=== PATIENT | female | born 1950 | race African-American/Black ===

== ENCOUNTER 2016-11-13 12:00 | Inpatient (IN) | payer MEDICARE, OTHER ==
[~2016-11-13] VITALS: Ht 162.6 cm; Wt 86.2 kg
[2016-11-13] MEDS ORDERED: IV NORMAL SALINE 1000 ML BAG IV ONE (12:15)
[2016-11-13] MEDS ORDERED: ONDANSETRON IV *ER 4 MG/2 ML VIAL IV ONE (12:30)
[2016-11-13] MEDS ORDERED: ALBU8HFA4 IH (12:41)
[2016-11-13] MEDS ORDERED: CALC-1190 PO (12:41)
[2016-11-13] MEDS ORDERED: AMLO5TAB2 PO (12:41)
[2016-11-13] MEDS ORDERED: LORA2TAB PO (12:41)
[2016-11-13] MEDS ORDERED: DEXT1DRO3 OP (12:41)
[2016-11-13] MEDS ORDERED: RISP2TAB23 PO (12:41)
[2016-11-13] MEDS ORDERED: SENN1TAB83 PO (12:41)
[2016-11-13] MEDS ORDERED: SERT25TA5 PO (12:41)
[2016-11-13] MEDS ORDERED: LEVO100T10 PO (12:41)
[2016-11-13] MEDS ORDERED: ACET-2067 PO (12:41)
[2016-11-13] MEDS ORDERED: TEMA15CA PO (12:41)
[2016-11-13] MEDS ORDERED: ATOR40TA PO (12:41)
[2016-11-13] MEDS ORDERED: METO25TA6 PO (12:41)
[2016-11-13] MEDS ORDERED: NAPR500T3 PO (12:41)
[2016-11-13] MEDS ORDERED: BENZ0.5T3 PO (12:41)
[2016-11-13] MEDS ORDERED: HYDR25TA4 PO (12:41)
[2016-11-13] MEDS ORDERED: ONDANSETRON 4 MG/2 ML VIAL ONE (12:42)
[2016-11-13 13:09] LABS: BASOPHILS % (AUTO) 0.1 % (0.0-2.0); EOSINOPHILS # (AUTO) 0.1 K/uL (0.0-0.7); EOSINOPHILS % (AUTO) 0.9 % (0.0-7.0); HEMATOCRIT 46.2 % (31.2-41.9); HEMOGLOBIN 15.5 g/dL (10.9-14.3); LYMPHOCYTES # (AUTO) 2.8 K/uL (20.0-40.0); LYMPHOCYTES % (AUTO) 21.1 % (20.5-51.5); MEAN CORPUSCULAR HEMOGLOBIN 28.4 uug (24.7-32.8); MEAN CORPUSCULAR HGB CONC 34 g/dL (32.3-35.6); MEAN CORPUSCULAR VOLUME 84.7 fL (75.5-95.3); MONOCYTES # (AUTO) 1.2 K/uL (2.0-10.0); MONOCYTES % (AUTO) 9.1 % (0.0-11.0); NEUTROPHILS # (AUTO) 9.3 K/uL (1.8-8.9); NEUTROPHILS % (AUTO) 68.8 % (38.5-71.5); PLATELET COUNT (AUTO) 267 K/uL (179-408); RED BLOOD CELL COUNT(AUTO) 5.45 MIL/uL (3.63-4.92); RED CELL DISTRIBUTION WIDTH 15.6 % (12.3-17.7); WHITE BLOOD COUNT (AUTO) 13.4 K/uL (3.8-11.8)
[2016-11-13 13:16] LABS: ALBUMIN 4.2 g/dL (3.4-5.0); BILIRUBIN,DIRECT 0.1 mg/dL (0.0-0.2); BILIRUBIN,TOTAL 0.8 mg/dL (0.2-1.0); CALCIUM 11.2 mg/dL (8.5-10.1); CREATININE 1.3 mg/dL (0.6-1.3); POTASSIUM 3.2 mmol/L (3.5-5.1); TOTAL PROTEIN, SERUM 9.4 g/dL (6.4-8.2)
[2016-11-13 13:18] LABS: TROPONIN I < 0.017 ng/mL (0.00-0.056)
--- NOTE | 2016-11-13 13:23 | NUR ---
PT AT BEDSIDE ASLEEP. BUT AROUSABLE. PLACED PT ON O2 1L, BECAUSE PT DESATS TO 82% ON RA WHEN SLEEPING. WCTM PT AT THIS TIME. WAITING FOR FURTHER PLAN OF CARE
[2016-11-13 13:31] LABS: LACTIC ACID 2.6 mmol/L (0.4-2.0)
[2016-11-13 13:36] LABS: BAND % (MANUAL) 9 % (0-10); EOSINOPHILS % (MANUAL) 1 % (0-8); LYMPHOCYTES % (MANUAL) 20 % (20-40); METAMYELOCYTES % 1 % (0-1); MONOCYTES % (MANUAL) 9 % (2-10); NEUTROPHILS % (MANUAL) 60 % (42-75)
[2016-11-13 13:38] LABS: ANISOCYTOSIS 1+; STOMATOCYTES 1+; TEAR DROP CELLS 1+
[2016-11-13] MEDS ORDERED: IOHEXOL 300MG/ML 100 ML INFUS..BTL ONE (13:44)
[2016-11-13] MEDS ORDERED: IV NORMAL SALINE 250 ML IV ONE (13:44)
--- NOTE | 2016-11-13 13:49 | NUR ---
PT IS IN CT
[2016-11-13] MEDS ORDERED: IV NORMAL SALINE 500 ML BAG IV ONE (15:00)
[2016-11-13] MEDS ORDERED: PIPERACILLIN SODIUM/TAZOBACTAM 3.375 G in IV DEXTROSE 5% 50 ML IV ONE (15:15)
--- NOTE | 2016-11-13 15:28 | NUR ---
ATTEMPTED TO PLACE NG TUBE PER MD'S ORDER. HOWEVER, PT REFUSED EXPLAINED RISKS AND BENEFITS OF NG TUBE. PT STILL REFUSED. MD HOLDEN IS AWARE
[2016-11-13] MEDS ORDERED: PIPERACILLIN/TAZOBACTAM/D5W 50 ML IV ONE (15:34)
[2016-11-13] MEDS ORDERED: HYDROCODONE/APAP 5-325MG TABLET PO PRN (15:45)
[2016-11-13] MEDS ORDERED: MAGNESIUM HYDROXIDE 30 ML LIQUID UDC PO PRN (15:45)
[2016-11-13] MEDS ORDERED: ONDANSETRON 4 MG/2 ML VIAL IV PRN (15:45)
[2016-11-13] MEDS ORDERED: MORPHINE SULFATE 2 MG/1 ML DISP.SYRIN IV PRN (15:45)
[2016-11-13] MEDS ORDERED: Z GUARD REMEDY PASTE 57 GM TUBE TOP PRN (15:45)
[2016-11-13] MEDS ORDERED: ACETAMINOPHEN 325 MG TABLET PO PRN (15:45)
[2016-11-13] MEDS ORDERED: TEMAZEPAM 7.5 MG CAPSULE PO PRN (15:45)
--- NOTE | 2016-11-13 16:00 | NUR ---
PER MD HOLDEN. NG-TUBE IS "OKAY TO USE"
--- NOTE | 2016-11-13 16:00 | NUR ---
REPORT GIVEN TO HOMER, AWARE OF PT'S CURRENT CONDITION. WILL CONTINUE PLAN OF CARE
[2016-11-13 17:00] VITALS: BP 133/81
[2016-11-13] MEDS: IV NS 1000 ML 1,000 ML IV PRN (18:00)
--- NOTE | 2016-11-13 18:00 | NUR ---
NGT intact marked of placement of NGT and TAPE connection. NGT to low intermittent suction - got 200cc out - green bile. Pt is in no acute distress. Pt alert and oriented x 4 tele @ low 100's sinus tach. Call light is within reach. DR caden HERNANDEZ called and stated that he will see pt tomorrow spoke with discharge planner. Call light is within reach. Pt is in no acute distress.
[2016-11-13 20:00] VITALS: BP 136/90
--- NOTE | 2016-11-13 20:00 | NUR ---
RECEIVED PT'S ON BED REST COMFORTABLY,NGT @ RIGHT NOSTRIL TO LOW INTERMITTENT SUCTION,TEST FOR PLACEMENT AT THIS TIME;KEPT NPO ORDER;EDUCATED TO PT,ORAL CARE;PT VERBALIZED UNDERSTANDING AND COOPERATIVE.SCD TO BLE.MAINTAINED IVF MD'S ORDER,PT'S ABLE TO TURN ON BED;ASSISTED FOR PM CARE AT THIS TIME.KEPT COMFORT.TELEMETRY'S SINUS TACHYCARDIA 106/MIN.
--- NOTE | 2016-11-13 22:00 | NUR ---
DECREASED O2 NC TO 2 LPM;O2 SAT'S 97-98%;NO SOB NOTED.ASSISTED FOR ORAL CARE;REPOSITION.KEPT COMFORT.BED ALARM'S OB.CONTINUED MONITORING TO PT.PT DENIED OF PAIN OR ANY DISCOMFORT.
[2016-11-14] VITALS: BP 125/84
--- NOTE | 2016-11-14 01:15 | NUR ---
Spoke to Marques Barahona/PAUL who's automation qa analyst tonight(for );notified about NGT output's 700 ml(since admission until now) and K level's 3.2;got order to give Potassium 20 mEq IVPB x1 dose.Pt's comfortable on bed;denied of pain or any discomfort.continued monitoring to pt.Telemetry's ST 102/min.Continued monitoring to pt.
[2016-11-14] MEDS: POTASSIUM CHLORIDE 50 ML IV SCH ×6 (01:17→17:41)
[2016-11-14] MEDS: IV NS 1000 ML 1,000 ML IV PRN ×2 (02:05→14:35)
[2016-11-14 04:00] VITALS: BP 119/73
--- NOTE | 2016-11-14 06:30 | NUR ---
Assisted pt for am care on bed,skin's intact/pt's cooperative w/assistance;kept NPO as order.NGT to LIS got total of gastric content 1000 ml;greenish color noted.pt denied of pain and no N/V was seen in the shift.no distress noted.Telemetry's still ST 104/min.continued monitoring to pt.
[2016-11-14 06:39] LABS: BASOPHILS % (AUTO) 0.1 % (0.0-2.0); EOSINOPHILS # (AUTO) 0.1 K/uL (0.0-0.7); EOSINOPHILS % (AUTO) 1.5 % (0.0-7.0); HEMATOCRIT 41.5 % (31.2-41.9); HEMOGLOBIN 13.6 g/dL (10.9-14.3); LYMPHOCYTES # (AUTO) 2.9 K/uL (20.0-40.0); LYMPHOCYTES % (AUTO) 30.2 % (20.5-51.5); MEAN CORPUSCULAR HEMOGLOBIN 28.4 uug (24.7-32.8); MEAN CORPUSCULAR HGB CONC 33 g/dL (32.3-35.6); MEAN CORPUSCULAR VOLUME 86.4 fL (75.5-95.3); MONOCYTES % (AUTO) 10.8 % (0.0-11.0); NEUTROPHILS # (AUTO) 5.7 K/uL (1.8-8.9); NEUTROPHILS % (AUTO) 57.4 % (38.5-71.5); PLATELET COUNT (AUTO) 238 K/uL (179-408); RED CELL DISTRIBUTION WIDTH 15.6 % (12.3-17.7); WHITE BLOOD COUNT (AUTO) 9.7 K/uL (3.8-11.8)
[2016-11-14 06:49] LABS: ALBUMIN 3.3 g/dL (3.4-5.0); BILIRUBIN,TOTAL 0.6 mg/dL (0.2-1.0); MAGNESIUM 2.1 mg/dL (1.8-2.4); PHOSPHOROUS 3.3 mg/dL (2.5-4.9); POTASSIUM 3.1 mmol/L (3.5-5.1); TOTAL PROTEIN, SERUM 7.6 g/dL (6.4-8.2)
[2016-11-14 06:59] LABS: CALCIUM 9.6 mg/dL (8.5-10.1)
[2016-11-14] MEDS ORDERED: DIATR MEGLU/DIATRIZOATE SODIUM 120 ML BOTTLE ONE (08:33)
[2016-11-14] MEDS ORDERED: DIATR MEGLU/DIATRIZOATE SODIUM 30 ML SOLUTION ONE (08:33)
[2016-11-14] MEDS: PANTOPRAZOLE SODIUM 40 MG VIAL IV SCH (08:58)
[2016-11-14] MEDS ORDERED: ACETAMINOPHEN 650 MG SUPP.RECT RC PRN (09:15)
[2016-11-14 11:30] VITALS: BP 131/82
[2016-11-14 15:40] VITALS: BP 186/101
--- NOTE | 2016-11-14 17:28 | NUR ---
Patient have been sleeping intermittently. No s/s of acute distress noted. During x-ray and positioning patient vomit 3 times during my shift, and became tachy >120 <150, Luz Elena Calderón was notified for the sudden and sustain increase HR. NG tube was pulled out by patient, new one was inserted in the mouth by TOM Bernstein., after 3 attempts made by Danni, and myself. Patient became very agitated and combative during placement of the tube. Dr. Childs stated no need for restrain. I explained patient the importance of maintaining the g-tube in place, and risk for aspiration. Verbalized understanding. Vomit 670cc and suction 1,100 cc after the placement of tube. Refused straight cath for urine sample, she said she will let me know when she has to urinate, but she have not. She have been urinating in the diaper. Patient is resting now, safety and comfort provided. Will continue monitoring.
[2016-11-14 19:00] VITALS: BP 132/87
--- NOTE | 2016-11-14 19:00 | NUR ---
ACCOUNTING MANAGER CONTROLLER NOTIFIED ME THAT PATIENT HR RATE INCREASED TO 160. I FOUND PATIENT IN THE BATHROOM, NG-TUBE CONTAINS LEAKING OVER THE FLOOR. 300CC TAKEN OUT. PUT HER BACK TO BED, AND EDUCATED HER ABOUT THE RISK FOR FALLS WITH THE DVT PUMPS AND IV CONNECTED PATIENT SEEMS FORGETFUL AND CONFUSED AT TIMES. REPORT GIVEN TO EARNEST GREENE.
[2016-11-14] MEDS ORDERED: ONDANSETRON 4 MG/2 ML VIAL IV PRN (22:00)
[2016-11-14] MEDS ORDERED: MORPHINE SULFATE 2 MG/1 ML DISP.SYRIN IV PRN (22:45)
[2016-11-14] MEDS ORDERED: PIPERACILLIN SODIUM/TAZO 3.375 GM VIAL ONE (22:48)
[2016-11-14] MEDS: PIPERACILLIN/TAZOBACTAM/D5W 3.375 G in PREMIXED 1 EACH IV SCH (22:52)
[2016-11-15 00:28] VITALS: BP 153/87
[2016-11-15] MEDS: POTASSIUM CHLORIDE 20 MEQ in IV D5 1/2 NS 1000 ML 1,000 ML IV PRN (00:49)
[2016-11-15] MEDS: LEVALBUTEROL HCL NEB 0.63 MG/3 ML NEBU NEB SCH ×4 (01:25→19:37)
[2016-11-15 04:00] VITALS: BP 128/77
[2016-11-15] MEDS: PIPERACILLIN/TAZOBACTAM/D5W 3.375 G in PREMIXED 1 EACH IV SCH ×3 (05:00→21:42)
[2016-11-15 06:47] LABS: BASOPHILS % (AUTO) 0.3 % (0.0-2.0); EOSINOPHILS # (AUTO) 0.1 K/uL (0.0-0.7); EOSINOPHILS % (AUTO) 1.1 % (0.0-7.0); HEMATOCRIT 40.3 % (31.2-41.9); HEMOGLOBIN 12.9 g/dL (10.9-14.3); LYMPHOCYTES # (AUTO) 2.4 K/uL (20.0-40.0); MEAN CORPUSCULAR HEMOGLOBIN 27.5 uug (24.7-32.8); MEAN CORPUSCULAR HGB CONC 32 g/dL (32.3-35.6); MEAN CORPUSCULAR VOLUME 86.4 fL (75.5-95.3); MONOCYTES # (AUTO) 1.2 K/uL (2.0-10.0); MONOCYTES % (AUTO) 10.3 % (0.0-11.0); NEUTROPHILS # (AUTO) 8.4 K/uL (1.8-8.9); NEUTROPHILS % (AUTO) 68.3 % (38.5-71.5); PLATELET COUNT (AUTO) 221 K/uL (179-408); RED BLOOD CELL COUNT(AUTO) 4.67 MIL/uL (3.63-4.92); RED CELL DISTRIBUTION WIDTH 15.4 % (12.3-17.7); WHITE BLOOD COUNT (AUTO) 12.1 K/uL (3.8-11.8)
--- NOTE | 2016-11-15 07:07 | NUR ---
PATIENT SLEPT WELL, IN NO ACUTE DISTRESS. OROGASTRIC TUBE PATENT ON LOW INTERMITTENT SUCTION. ANTIBIOTICS ADMINISTERED ORDERED, NO S/S OF ADVERSE REACTION NOTED. WILL CONTINUE TO MONITOR.
[2016-11-15 07:26] LABS: ALBUMIN 3.3 g/dL (3.4-5.0); BILIRUBIN,TOTAL 0.4 mg/dL (0.2-1.0); CALCIUM 9.4 mg/dL (8.5-10.1); CREATININE 1.1 mg/dL (0.6-1.3); MAGNESIUM 2.2 mg/dL (1.8-2.4); PHOSPHOROUS 2.4 mg/dL (2.5-4.9); TOTAL PROTEIN, SERUM 7.7 g/dL (6.4-8.2)
[2016-11-15 07:28] LABS: THYROID STIMULATING HORMONE 2.345 mIU/mL (0.358-3.740)
[2016-11-15] MEDS ORDERED: VANCOMYCIN IV 1,250 MG in IV DEXTROSE 5% 500 ML IV SCH (08:00)
[2016-11-15] MEDS: PANTOPRAZOLE SODIUM 40 MG VIAL IV SCH (08:30)
[2016-11-15 11:09] LABS: ANISOCYTOSIS 1+; BAND % (MANUAL) 8 % (0-10); EOSINOPHILS % (MANUAL) 1 % (0-8); LYMPHOCYTES % (MANUAL) 24 % (20-40); MONOCYTES % (MANUAL) 7 % (2-10); NEUTROPHILS % (MANUAL) 60 % (42-75); PLATELET ESTIMATE ADEQUATE
[2016-11-15 11:17] VITALS: BP 135/76
[2016-11-15] MEDS: POTASSIUM CHLORIDE 50 ML IV SCH ×4 (11:23→15:54)
[2016-11-15 15:47] VITALS: BP 140/84
[2016-11-15] MEDS ORDERED: SODIUM PHOSPHATE MM 15 MM in IV DEXTROSE 5% 250 ML IV ONE (16:00)
[2016-11-15] MEDS: POTASSIUM PHOSPHATE MM 5 MMOL in IV DEXTROSE 5% 100 ML IV SCH ×2 (17:09→19:30)
[2016-11-15 20:00] VITALS: BP 138/77
--- NOTE | 2016-11-15 21:30 | NUR ---
PATIENT COUGHED FORCEFULLY, OROGASTRIC TUBE CAME OUT. OUTPUT FROM INTERMITTENT SUCTION NOTED TO HAVE 2OCC ONLY. PATIENT STATED "IT'S TIME FOR IT TO COME OUT ANYWAY WHAT THE DOCTORS TOLD ME". PATIENT IN NO ACUTE DISTRESS, NO C/O OF NAUSEA/VOMITING. NOTIFIED CHARGE NURSE. WILL CONTINUE TO MONITOR. Addendum: 11/16/16 at 0701 by SHAHRZAD ARCE RN ADDITIONAL: PATIENT TO START ON CLEAR LIQUIDS PER 'S ORDER Addendum: 11/16/16 at 0730 by SHAHRZAD ARCE RN ADDITIONAL TO THE ABOVE: 'S ORDER BY DR. RICH, ENDORSED VERBALLY TO TOM APONTE IF OROGASTRIC OUTPUT IS <100CC TO REMOVE OGT AND PLACE PATIENT ON CLEAR LIQUID DIET TOLERATED.
[2016-11-16] MEDS: LEVALBUTEROL HCL NEB 0.63 MG/3 ML NEBU NEB SCH (01:04)
[2016-11-16] MEDS: POTASSIUM CHLORIDE 20 MEQ in IV D5 1/2 NS 1000 ML 1,000 ML IV PRN (03:33)
[2016-11-16 04:00] VITALS: BP 118/69
[2016-11-16] MEDS: PIPERACILLIN/TAZOBACTAM/D5W 3.375 G in PREMIXED 1 EACH IV SCH ×3 (05:05→22:15)
--- NOTE | 2016-11-16 06:34 | NUR ---
PATIENT SLEPT WELL, IN NO ACUTE DISTRESS, IVF INFUSING, NO INFILTRATION NOTED. URINE SPECIMEN SENT TO THE LAB PER MD'S ORDER. PATIENT IS PASSING WATERY BOWEL MOVEMENT, DARK BROWN COLOR. PATIENT IS NPO PENDING MD'S PLAN. ORAL CARE PROVIDED. CALL LIGHT WITHIN REACH, BED ALARM ON. WILL CONTINUE TO MONITOR. Addendum: 11/16/16 at 0702 by SHAHRZAD ARCE RN GAVE PATIENT WATER W/ICE 30CC, TOLERATED WELL WITH NO NAUSEA/VOMITING.
[2016-11-16 06:57] LABS: BASOPHILS # (AUTO) 0.1 K/uL (0.0-8.0); BASOPHILS % (AUTO) 0.7 % (0.0-2.0); EOSINOPHILS # (AUTO) 0.3 K/uL (0.0-0.7); EOSINOPHILS % (AUTO) 2.4 % (0.0-7.0); HEMATOCRIT 36.5 % (37-47); LYMPHOCYTES # (AUTO) 2.5 K/uL (20.0-40.0); LYMPHOCYTES % (AUTO) 21.8 % (20.5-51.5); MEAN CORPUSCULAR HEMOGLOBIN 28.5 UUG (27.0-31.0); MEAN CORPUSCULAR HGB CONC 33 g/dL (32.0-37.0); MEAN CORPUSCULAR VOLUME 86.9 FL (81.0-99.0); MONOCYTES # (AUTO) 0.9 K/uL (2.0-10.0); MONOCYTES % (AUTO) 8.1 % (0.0-11.0); NEUTROPHILS # (AUTO) 7.9 K/uL (1.8-8.9); PLATELET COUNT (AUTO) 214 K/UL (150-450); RED CELL DISTRIBUTION WIDTH 15.7 % (11.5-14.5); WHITE BLOOD COUNT (AUTO) 11.7 K/UL (4.0-11.2)
[2016-11-16 07:20] LABS: ALBUMIN 2.9 g/dL (3.4-5.0); BILIRUBIN,TOTAL 0.4 mg/dL (0.2-1.0); CALCIUM 8.8 mg/dL (8.5-10.1); PHOSPHOROUS 2.9 mg/dL (2.5-4.9); POTASSIUM 3.1 mmol/L (3.5-5.1); TOTAL PROTEIN, SERUM 7.2 g/dL (6.4-8.2)
[2016-11-16 07:22] LABS: CREATININE 1.6 mg/dL (0.6-1.3)
[2016-11-16 07:28] LABS: MAGNESIUM 2.2 mg/dL (1.8-2.4)
[2016-11-16 07:48] LABS: *BILIRUBIN,URIN NEGATIVE (NEGATIVE); *BLOOD, URINE NEGATIVE (NEGATIVE); *CLARITY,URINE SLIGHTLY CLOUDY (CLEAR); *COLOR,URINE YELLOW (YELLOW); *KETONES,URINE NEGATIVE (NEGATIVE); *PROTEIN,URINE 1+ (NEGATIVE); *UROBILINOGEN,URINE 0.2 E.U./dl (NORMAL); LEUKOCYTE ESTERASE ,URINE NEGATIVE (NEGATIVE); NITRITE, URINE NEGATIVE (NEGATIVE); PH,URINE 6.5 (5.0-8.0); UGLUCOSE NEGATIVE (NEGATIVE)
[2016-11-16 08:01] LABS: BACTERIA,URINE FEW /HPF (NONE SEEN); RBC,URINE 0-3 /HPF (0-3); SQUAMOUS EPITHELIAL CELL,UR MANY /HPF (NONE SEEN)
[2016-11-16] MEDS: PANTOPRAZOLE SODIUM 40 MG VIAL IV SCH (08:04)
[2016-11-16] MEDS: ALBUTEROL SULFATE 1.25 MG/3 ML NEBU NEB SCH ×4 (08:05→19:39)
[2016-11-16 10:05] LABS: ANISOCYTOSIS 1+; BAND % (MANUAL) 7 % (0-10); EOSINOPHILS % (MANUAL) 3 % (0-8); LYMPHOCYTES % (MANUAL) 25 % (20-40); MONOCYTES % (MANUAL) 10 % (2-10); NEUTROPHILS % (MANUAL) 55 % (42-75)
--- NOTE | 2016-11-16 11:45 | NUR ---
CONTINUING EDUCATION DEAN GETTING ROUTINE VITALS, PT SAT HIGH 70'S LOW 80'S. PT STATES SHORT OF BREATH AND PT IS DIAPHORETIC, HR 115, SAT PT UP AND INCREASED O2 TO 5LNC RT CALLED FOR BREATHING TREATMENT Addendum: 11/16/16 at 1821 by ANNIE CARTWRIGHT RN CHARTED ON WRONG PATIENT
[2016-11-16 11:52] VITALS: BP 127/68
[2016-11-16] MEDS: POTASSIUM CHLORIDE 50 ML IV SCH ×3 (12:27→13:30)
--- NOTE | 2016-11-16 12:39 | NUR ---
RT SUCTIONED AND GAVE PT BREATHING TREATMENT, PT NOW RESTING IN BED SAT 94% ON 4LNC. Addendum: 11/16/16 at 1822 by ANNIE CARTWRIGHT RN CHARTED ON WRONG PATIENT
--- NOTE | 2016-11-16 15:47 | NUR ---
PT IV IS NO GOOD AND WAS REMOVED, 1 BAG OF POTASSIUM WAS GIVEN, CALLED PHARMACY TO CHANGE THE OTHER 20 MEQ TO PO, PT TOLERATING DIET WELL
[2016-11-16 15:57] VITALS: BP 132/74
[2016-11-16] MEDS ORDERED: POTASSIUM CHLORIDE 20 MEQ POWDER PACKET PO ONE (16:00)
--- NOTE | 2016-11-16 18:23 | NUR ---
PT RESTING IN BED WITH DAUGHTER AT BEDSIDE. TOLERATED DIET WELL TODAY, WAS ADVANCED TO FULL LIQUIDS. HAD BM. ALL DUE MEDICATIONS GIVEN, ALL SAFETY AND COMFORT MEASURES MAINTAINED THROUGHOUT SHIFT, CALL LIGHT IN REACH
[2016-11-16 20:00] VITALS: BP 140/77
--- NOTE | 2016-11-16 20:00 | NUR ---
patient awake,alert, family at bedside,already had bowel movement per dayshift,no nausea noted,Spo2 96% on o2 at 2l/m via n/c,breathing treatment given by RT,no sob noted.patient denies pain/discomfort.
[2016-11-17] MEDS: ALBUTEROL SULFATE 1.25 MG/3 ML NEBU NEB SCH ×3 (01:15→13:30)
[2016-11-17] MEDS: POTASSIUM CHLORIDE 20 MEQ in IV D5 1/2 NS 1000 ML 1,000 ML IV PRN (04:33)
--- NOTE | 2016-11-17 05:56 | NUR ---
patient slept well through the night, no acute distress noted,denies abdominal pain, no nausea ,no sob noted, has stool x 1 this am,fall precautions, bed alarm on.
[2016-11-17 06:07] VITALS: BP 114/66
[2016-11-17] MEDS: PIPERACILLIN/TAZOBACTAM/D5W 3.375 G in PREMIXED 1 EACH IV SCH ×2 (06:10→14:27)
[2016-11-17 06:59] LABS: CALCIUM 8.7 mg/dL (8.5-10.1); MAGNESIUM 1.7 mg/dL (1.8-2.4); PHOSPHOROUS 2.4 mg/dL (2.5-4.9); POTASSIUM 3.1 mmol/L (3.5-5.1)
[2016-11-17 07:04] LABS: CREATININE 1.4 mg/dL (0.6-1.3)
[2016-11-17 07:16] LABS: BASOPHILS # (AUTO) 0.1 K/uL (0.0-8.0); BASOPHILS % (AUTO) 0.5 % (0.0-2.0); EOSINOPHILS # (AUTO) 0.3 K/uL (0.0-0.7); EOSINOPHILS % (AUTO) 2.5 % (0.0-7.0); HEMATOCRIT 34.7 % (37-47); HEMOGLOBIN 11.4 G/DL (12.0-16.0); LYMPHOCYTES % (AUTO) 25.1 % (20.5-51.5); MEAN CORPUSCULAR HGB CONC 33 g/dL (32.0-37.0); MEAN CORPUSCULAR VOLUME 87.9 FL (81.0-99.0); MONOCYTES # (AUTO) 0.8 K/uL (2.0-10.0); MONOCYTES % (AUTO) 6.9 % (0.0-11.0); NEUTROPHILS # (AUTO) 7.7 K/uL (1.8-8.9); PLATELET COUNT (AUTO) 203 K/UL (150-450); RED BLOOD CELL COUNT(AUTO) 3.94 MIL/UL (4.2-5.4); RED CELL DISTRIBUTION WIDTH 15.4 % (11.5-14.5); WHITE BLOOD COUNT (AUTO) 11.9 K/UL (4.0-11.2)
[2016-11-17] MEDS: PANTOPRAZOLE SODIUM 40 MG VIAL IV SCH (08:05)
[2016-11-17] MEDS ORDERED: MAGNESIUM OXIDE 400 MG TABLET PO ONE (09:15)
[2016-11-17] MEDS: POTASSIUM PHOSPHATE MM 7.5 MMOL in IV DEXTROSE 5% 100 ML IV SCH ×2 (09:56→12:43)
[2016-11-17 11:48] VITALS: BP 131/79
[2016-11-17 15:53] VITALS: BP 134/72
[2016-11-17] MEDS ORDERED: NAPR500T3 PO (16:10)
[2016-11-17] MEDS ORDERED: ACID1TAB4 PO (16:10)
[2016-11-17] MEDS ORDERED: OMEP20CA10 PO (16:10)
--- NOTE | 2016-11-17 18:00 | NUR ---
Patient discharged from unit. Report given to TOM Mota.
== END 2016-11-17 17:58 | DRG 871 ==
LOC: ER 12:00 → TELE-TD 16:19 → TELE 17:30 → MED 11-15 13:20
PROVIDERS: ADMIT Family Medicine; ATTEND Family Medicine
DX: A41.9 Sepsis, unspecified organism (principal); N17.0 Acute kidney failure with tubular necrosis; J69.0 Pneumonitis due to inhalation of food and vomit; K56.60 Unspecified intestinal obstruction; E87.2 Acidosis; F20.0 Paranoid schizophrenia; E03.9 Hypothyroidism, unspecified; E78.5 Hyperlipidemia, unspecified; E87.6 Hypokalemia; J44.9 Chronic obstructive pulmonary disease, unspecified; F32.9 Major depressive disorder, single episode, unspecified; E87.8 Other disorders of electrolyte and fluid balance, not elsewhere classified; K57.90 Diverticulosis of intestine, part unspecified, without perforation or abscess without bleeding; E86.0 Dehydration; E66.9 Obesity, unspecified; D72.829 Elevated white blood cell count, unspecified; Z87.891 Personal history of nicotine dependence; I10 Essential (primary) hypertension; I70.8 Atherosclerosis of other arteries; Z68.32 Body mass index [BMI] 32.0-32.9, adult; Z79.899 Other long term (current) drug therapy; E11.9 Type 2 diabetes mellitus without complications
CPT/HCPCS: 36415; 70030-TC; 71010; 73521; 74000; 74250; 83605; 83735; 84100; 84443; 85025; 85730; 86850; 86870; 86900; 86901; 87040; 87086; 93005; 93307; 94640; 94664; 97001; A4217; A4663; C1758; C9113; J2405; J2543; J3370; J3480; J3490; J7030; J7040; J7050; J7060; J7614; Q9963; Q9967